=== PATIENT | female | born 1945 | race Caucasian/White ===

== ENCOUNTER 2020-04-04 00:19 | Outpatient (CLI) | payer MEDICARE, SELFPAY ==
[2020-04-04 18:56] LABS: SARS-CoV-2 RNA PCR Negative
== END 2020-04-04 00:20 | disposition home or self-care (01) ==
LOC: ANHCOVIDDT 00:19
PROVIDERS: PCP Internal Medicine; Visit Provider Internal Medicine Gastroenterology
DX: Z01.818 Encounter for other preprocedural examination (principal); Z11.59 Encounter for screening for other viral diseases; R93.3 Abnormal findings on diagnostic imaging of other parts of digestive tract
CPT/HCPCS: 87635; C9803; U0003

== ENCOUNTER 2020-04-06 00:38 | Day surgery (SDC) | payer MEDICARE, SELFPAY ==
[2020-03-30 14:23] VITALS: BMI 17.4
[2020-04-06 07:52] VITALS: BP 108/67; PULSE 100; RESP 18; TEMP 36.4; O2SAT 100
--- NOTE | 2020-04-06 08:04 | WPDANESEPPF ---
Anes - Initial Pre Proc Eval Procedure: Operation Date: 04/06/20 09:00 Proposed Procedures p Esophagogastroduodenoscopy - Ricardo Hicks DO Date/Time: 04/06/20 08:04 Surgeon: Ricardo Hicks DO Pre Op Diagnosis: esophagitis Patient Data Age: 75 Gender: F Height: 1.78 m Weight: 55 kg Allergies Allergy/AdvReac Type Severity Reaction Status Date / Time Penicillins Allergy Severe Hives Verified 04/06/20 07:56 Home Medications Medication Instructions Recorded Confirmed Type Cbd Oil 1 drp 03/30/20 History apple cider vinegar mg PO 03/30/20 History azelastine 137 mcg INTRANASAL BID 03/30/20 04/06/20 History calcium carbonate [Tums] 200 mg PO TID PRN 03/30/20 03/30/20 History fluticasone furoate-vilanterol 1 inh INHALATION DAILY 03/30/20 03/30/20 History [Breo Ellipta] fluticasone propionate 2 spray INTRANASAL BID 03/30/20 03/30/20 History oxycodone 5 mg PO DAILY PRN 03/30/20 04/06/20 History Patient hx anesthesia problems: none Family hx anesthesia problems: none PMFSH Past Medical History Medical History (Updated 04/06/20 @ 08:10 by Kye Ivan MD) AAA (abdominal aortic aneurysm) without rupture 03/2018 CT: 4.1 cm infrarenal aaa Chronic kidney disease (CKD) stage G3a/A2, moderately decreased glomerular filtration rate (GFR) between 45-59 mL/min/1.73 square meter and albuminuria creatinine ratio between 30-299 mg/g Chronic narcotic use Oxycodone PRN CKD (chronic kidney disease) COPD (chronic obstructive pulmonary disease) Follicular lymphoma History of [place] nodule [place] [id number], Partial right lobe removed r/t scar tissue 2008 Malignant neoplasm of lower lobe, right bronchus or lung Metastatic disease RAFA on CPAP 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 SOB (shortness of breath) Tobacco abuse Surgical History Surgical History (Updated 04/06/20 @ 08:07 by Kye Ivan MD) History of bilateral oophorectomy History of lung surgery History of tonsillectomy Hx of cholecystectomy Social History Social History (Updated 12/07/19 @ 14:47 by Meka Batista CMA) Smoking packs per day: 1 Smoking cigarettes per day: 20.0 Years smoked: 50 Smoking pack-years: 50.00 Smoking status: Current every day smoker Tobacco type: cigarettes Second hand tobacco smoke exposure: Yes Smoking end date: 09/12/19 Alcohol intake: never Gender identity (if verbalized by the patient): Female Anes - Eval Final PreProcedure Day of Procedure 04/06/20 08:04 Patient weight: thin Heart: regular rate and rhythm Lungs: clear to auscultation and normal air movement Airway: Mallampati scale class II Neurological: alert and oriented Last oral intake: >/= 8 hours ASA classification: III Emergent: no Anesthetic plan: proceed Anesthesia type and monitoring: general GIVS Informed Consent: The patient's anesthetic plan and its attendant risks and benefits were discussed with the patient/family/POA. Questions were solicited and answers provided to the satisfaction of the patient/family/POA.
[2020-04-06] MEDS: LACTATED RINGERS 1,000 ML 150 ML IV CONT (08:16)
--- NOTE | 2020-04-06 08:45 | PM.IMHP ---
H&P: HPI History of Present Illness Chief complaint: esophagitis Narrative: reason for visit EGD. This very pleasant lady Is being seen at the request of the primary physician. the patient was examined. Impression: A very pleasant lady with history of indigestion and heartburn. She has had abnormal PET scanning of the esophagus. She is here for EGD. History of adenomatous colon polyps. History diverticulosis coli. Per past medical history. Recommendation: EGD. History: This very pleasant lady has a history of lung cancer status post radiation therapy. She also has a history of non-Hodgkin's lymphoma and status post chemotherapy. PET scanning revealed a abnormality in the esophagus. She does have a history of frequent indigestion and heartburn. She has pill dysphagia only. Nausea, vomiting hematemesis and abdominal pain are denied. Hematochezia, melena acholic stools are denied. Physical examination: General: very pleasant patient in no acute distress. HEENT: Head was normocephalic sclerae is clear mouth without masses neck was supple. Heart: Rate rhythm regular without S3 or S4. Lungs: Decreased breath sounds bilaterally with occasional wheezes. Abdomen: Soft with no guarding or rigidity. Bowel sounds were active. Neurologic: Cranial nerves 2 through 12 intact. No focal defects. No clonus. Musculoskeletal system: Revealed no joint tenderness or swelling no muscle atrophy. Extremities: Reveal no significant edema. Skin: Warm and dry with normal turgor. Mental status: intact. Patient is alert and oriented. Review of Systems Review of Systems: All systems reviewed & are unremarkable except as noted in HPI and below [facility] Past Medical History Medical History (Updated 04/06/20 @ 08:45 by Ricardo Hicks DO) AAA (abdominal aortic aneurysm) without rupture 03/2018 CT: 4.1 cm infrarenal aaa Adenomatous colon polyp Chronic narcotic use Oxycodone PRN CKD (chronic kidney disease) COPD (chronic obstructive pulmonary disease) Diverticula, colon Follicular lymphoma History of thyroid nodule [place] [id number], Partial right lobe removed r/t scar tissue 2008 Metastatic disease RAFA on CPAP Osteoporosis 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 Tobacco abuse Surgical History Surgical History (Updated 04/06/20 @ 08:44 by Ricardo Hicks DO) H/O colonoscopy History of bilateral oophorectomy History of lung surgery History of tonsillectomy Hx of cholecystectomy Social History Social History (Updated 12/07/19 @ 14:47 by Meka Batista [facility]) Smoking packs per day: 1 Smoking cigarettes per day: 20.0 Years smoked: 50 Smoking pack-years: 50.00 Smoking status: Current every day smoker Tobacco type: cigarettes Second hand tobacco smoke exposure: Yes Smoking end date: 09/12/19 Alcohol intake: never Gender identity (if verbalized by the patient): Female Meds Home Medications and Allergies Home Medications Medication Instructions Recorded Confirmed Type Cbd Oil 1 drp 03/30/20 History apple cider vinegar mg PO 03/30/20 History azelastine 137 mcg INTRANASAL BID 03/30/20 04/06/20 History calcium carbonate [Tums] 200 mg PO TID PRN 03/30/20 03/30/20 History fluticasone furoate-vilanterol 1 inh INHALATION DAILY 03/30/20 03/30/20 History [Breo Ellipta] fluticasone propionate 2 spray INTRANASAL BID 03/30/20 03/30/20 History oxycodone 5 mg PO DAILY PRN 03/30/20 04/06/20 History Allergies Allergy/AdvReac Type Severity Reaction Status Date / Time Penicillins Allergy Severe Hives Verified 04/06/20 07:56 Vital Signs Vital Signs - 24 hr 04/06/20 07:52 Temperature 36.4 C L Pulse Rate 100 Respiratory Rate 18 Blood Pressure 108/67 Pulse Oximetry 100
[2020-04-06 09:04] VITALS: BP 89/44; PULSE 97; RESP 22; O2SAT 97
[2020-04-06 09:14] VITALS: BP 111/55; PULSE 98; RESP 16; O2SAT 98
[2020-04-06 09:24] VITALS: BP 95/63; PULSE 77; RESP 17; O2SAT 96
== END 2020-04-06 09:49 | disposition home or self-care (01) ==
PROVIDERS: PCP Internal Medicine; Visit Provider Internal Medicine Gastroenterology
PROC: 0DJ08ZZ Inspection of Upper Intestinal Tract, Via Natural or Artificial Opening Endoscopic (ICD-10-PCS; CPT 43235; principal; 2020-04-06 09:00)
DX: K20.8 Other esophagitis (principal); K21.9 Gastro-esophageal reflux disease without esophagitis; G47.33 Obstructive sleep apnea (adult) (pediatric); N18.9 Chronic kidney disease, unspecified; J44.9 Chronic obstructive pulmonary disease, unspecified; I71.4 Abdominal aortic aneurysm, without rupture; M81.8 Other osteoporosis without current pathological fracture; F17.210 Nicotine dependence, cigarettes, uncomplicated; Z85.72 Personal history of non-Hodgkin lymphomas; Z85.118 Personal history of other malignant neoplasm of bronchus and lung; Z92.21 Personal history of antineoplastic chemotherapy; Z92.3 Personal history of irradiation; Z79.899 Other long term (current) drug therapy; Z79.891 Long term (current) use of opiate analgesic
CPT/HCPCS: 43239; 87081; 88305; 88312; J2001; J2704; J7120

== ENCOUNTER 2020-07-21 11:48 | Outpatient (CLI) | payer MEDICARE, SELFPAY ==
[2020-07-21 12:23] LABS: Cholesterol 199 mg/dL (0-200); HDL Direct 59 mg/dL; Triglycerides 222 mg/dL (<150)
[2020-07-21 12:33] LABS: LDL Cholesterol Direct 112 mg/dL
[2020-07-21 13:22] LABS: Vitamin D 25 Hydroxy 38.4 ng/mL
== END 2020-07-21 11:49 | disposition home or self-care (01) ==
PROVIDERS: PCP Internal Medicine; Visit Provider Internal Medicine
DX: E55.9 Vitamin D deficiency, unspecified (principal); E78.5 Hyperlipidemia, unspecified
CPT/HCPCS: 36415; 80061; 82306

== ENCOUNTER 2020-08-01 10:33 | Outpatient (CLI) | payer MEDICARE, SELFPAY ==
--- NOTE | ~2020-08-01 | MM_ITS ---
EXAMINATION: MM screening rajeev BI w jesenia HISTORY: Screening mammogram TECHNIQUE: Craniocaudal and mediolateral oblique 3-D tomosynthesis images were obtained and synthetic 2-D images were generated. CAD analysis was submitted and interpreted. COMPARISON: 07/20/2012 bilateral digital screening mammogram BREAST PARENCHYMAL COMPOSITION: There are scattered areas of fibroglandular density. FINDINGS: 7 mm circumscribed opacity in the upper outer quadrant of the right breast is stable since 07/20/2012. The stability in the benign mammographic features are consistent with benign process. Occa sional bilateral benign calcifications. There is no evidence of suspicious mass, calcification, or ar chitectural distortion to suggest malignancy in either breast. There has been no suspicious interval change. IMPRESSION: 1. No mammographic evidence of malignancy. 2. Recommend routine screening mammography in one year. BI-RADS Category 2: Benign finding(s). Reviewed, dictated and finalized at location A.
== END 2020-08-01 10:34 | disposition home or self-care (01) ==
PROVIDERS: PCP Internal Medicine; Visit Provider Internal Medicine
DX: Z12.31 Encounter for screening mammogram for malignant neoplasm of breast (principal)
CPT/HCPCS: 77063; 77067

== ENCOUNTER → 2020-12-11 02:18 | Outpatient (CLI) | payer MEDICARE, SELFPAY ==
[2020-12-11 18:21] LABS: SARS-CoV-2 RNA PCR Negative
== END ==
PROVIDERS: PCP Internal Medicine; Visit Provider Internal Medicine Gastroenterology
DX: Z01.812 Encounter for preprocedural laboratory examination (principal); Z20.822 Contact with and (suspected) exposure to COVID-19
CPT/HCPCS: C9803; U0003; U0005

== ENCOUNTER 2020-12-14 00:16 | Day surgery (SDC) | payer MEDICARE, SELFPAY ==
[2020-11-29 11:46] VITALS: BMI 21.4
[2020-12-14 07:55] VITALS: BP 93/38; PULSE 101; RESP 20; TEMP 36.3; O2SAT 100
[2020-12-14] MEDS: LACTATED RINGERS 1,000 ML 150 ML IV CONT (08:05)
--- NOTE | 2020-12-14 08:51 | WPDANESEPPF ---
Anes - Initial Pre Proc Eval Procedure: Operation Date: 12/14/20 09:00 Proposed Procedures p Screening Colonoscopy - Ricardo Hicks DO Date/Time: 12/14/20 08:51 Surgeon: Ricardo Hicks DO Pre Op Diagnosis: neoplasm screening Patient Data Age: 75 Gender: F Height: 5 ft 10 in Weight: 72.9 kg Last Vital Signs Temp 97.3 F L 12/14/20 07:55 Pulse 101 H 12/14/20 07:55 Resp 20 12/14/20 07:55 BP 93/38 L 12/14/20 07:55 Pulse Ox 100 12/14/20 07:55 Allergies Allergy/AdvReac Type Severity Reaction Status Date / Time Penicillins Allergy Severe Hives Verified 12/14/20 07:53 Home Medications Medication Instructions Recorded Confirmed Type apple cider vinegar 300 mg PO DAILY 03/30/20 12/12/20 History azelastine 137 mcg INTRANASAL BID 03/30/20 12/12/20 History cetirizine 10 mg capsule 10 mg PO DAILY 30 Days #30 cap 06/06/20 12/12/20 Rx albuterol sulfate 90 mcg/actuation 1 puff INHALATION Q4H PRN 07/13/20 12/12/20 History aerosol inhaler ferrous sulfate 325 mg (65 mg 325 mg PO DAILY 07/13/20 12/12/20 History iron) tablet fluticasone propionate 2 spray INTRANASAL BID 11/29/20 12/12/20 History bupropion HCl 150 mg tablet,12 hr 150 mg PO DAILY tablet 12/12/20 12/14/20 History sustained-release nitrofurantoin macrocrystal 100 mg 100 mg PO Q12H PRN #20 cap 12/12/20 12/14/20 Rx capsule Patient hx anesthesia problems: none Family hx anesthesia problems: none PMFSH Past Medical History Medical History AAA (abdominal aortic aneurysm) without rupture 03/2018 CT: 4.1 cm infrarenal aaa Adenomatous colon polyp Chronic narcotic use Oxycodone PRN CKD (chronic kidney disease) COPD (chronic obstructive pulmonary disease) Diverticula, colon Follicular lymphoma GERD (gastroesophageal reflux disease) History of thyroid nodule History [place] [id number], Partial right lobe removed r/t scar tissue 2009 Metastatic disease RAFA on CPAP Osteoporosis 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 Tobacco abuse Surgical History Surgical History H/O colonoscopy History of bilateral oophorectomy History of lung surgery History of tonsillectomy Hx of cholecystectomy Family History Family History Sibling Patient's sister is in good health Family history of malignant neoplasm of ovary Diabetes mellitus Family history of lung cancer Family history of malignant neoplasm of bone Family history of malignant neoplasm of kidney Father Family history of malignant neoplasm of brain Grandparent Family history of malignant neoplasm of ovary Mother Diabetes mellitus Family history of congestive heart failure Social History Social History Smoking packs per day: 1 Smoking cigarettes per day: 20.0 Years smoked: 50 Smoking pack-years: 50.00 Smoking status: Former smoker Tobacco type: cigarettes and e-cigarettes/vaping Second hand tobacco smoke exposure: Yes Smoking end date: 09/12/19 Additional smoking assessment comments: USES VAPE NOW AFTER QUITTING CIG. Alcohol intake: never Substance use: never Substance use type: does not use Living arrangements: alone Gender identity (if verbalized by the patient): Female Spiritual care concerns: No Anes - Eval Final PreProcedure Day of Procedure 12/14/20 08:51 Patient weight: normal Heart: regular rate and rhythm Lungs: clear to auscultation Airway: Mallampati scale class II Neurological: alert and oriented Last oral intake: >/= 8 hours ASA classification: III Emergent: no Anesthetic plan: proceed Anesthesia type and monitoring: general GIVS and standard monitoring Informed Consent: The patient's anesthetic plan and its attendant risks and benefits were discussed with the patient/family/P
--- NOTE | 2020-12-14 09:11 | WPDGICN ---
GI Consult Note Consult date/time: 12/14/20 09:11 HPI: Reason for visit is colonoscopy. This very pleasant lady's here at the request primary physician. Impression: Screening and surveillance colonoscopy. The patient has history of multiple adenomatous colon polyps. Chronic constipation. This may be secondary to underlying medications. GERD controlled on medication. AAA. CKD. RAFA. Non-Hodgkin's lymphoma. Lung cancer. COPD. Osteoporosis. Tobacco abuse in remission. Recommendation: Colonoscopy. History: This very pleasant lady's here for colonoscopy. She does take senna order to have bowel movements at times. She has a history of multiple adenomatous colon polyps. She is here for screening and surveillance. Physical examination: General: very pleasant patient in no acute distress. HEENT: Head was normocephalic sclerae is clear mouth without masses neck was supple. Heart: Rate rhythm regular without S3 or S4. Lungs: Decreased breath sounds with expiratory wheezes. Abdomen: Soft with no guarding or rigidity. Bowel sounds were active. Neurologic: Cranial nerves 2 through 12 intact. No focal defects. No clonus. Musculoskeletal system: Revealed no joint tenderness or swelling no muscle atrophy. Extremities: Reveal no significant edema. Skin: Warm and dry with normal turgor. Mental status: intact. Patient is alert and oriented. Review of Systems Review of Systems: All systems reviewed & are unremarkable except as noted in HPI and below [facility] Past Medical History Medical History (Updated 12/14/20 @ 09:11 by Ricardo Hicks DO) AAA (abdominal aortic aneurysm) without rupture 03/2018 CT: 4.1 cm infrarenal aaa Adenomatous colon polyp Chronic narcotic use Oxycodone PRN CKD (chronic kidney disease) COPD (chronic obstructive pulmonary disease) Diverticula, colon Follicular lymphoma GERD (gastroesophageal reflux disease) History of thyroid nodule History of [place] abuse [place] [id number], Partial right lobe removed r/t scar tissue 2008 Metastatic disease RAFA on CPAP Osteoporosis Tobacco abuse Surgical History Surgical History H/O colonoscopy History of bilateral oophorectomy History of lung surgery History of tonsillectomy Hx of cholecystectomy Family History Family History Sibling Patient's sister is in good health Family history of malignant neoplasm of ovary Diabetes mellitus Family history of lung cancer Family history of malignant neoplasm of bone Family history of malignant neoplasm of kidney Father Family history of malignant neoplasm of brain Grandparent Family history of malignant neoplasm of ovary Mother Diabetes mellitus Family history of congestive heart failure Social History Social History Smoking packs per day: 1 Smoking cigarettes per day: 20.0 Years smoked: 50 Smoking pack-years: 50.00 Smoking status: Former smoker Tobacco type: cigarettes and e-cigarettes/vaping Second hand tobacco smoke exposure: Yes Smoking end date: 09/12/19 Additional smoking assessment comments: USES VAPE NOW AFTER QUITTING CIG. Alcohol intake: never Substance use: never Substance use type: does not use Living arrangements: alone Gender identity (if verbalized by the patient): Female Spiritual care concerns: No Meds Home Medications and Allergies Home Medications Medication Instructions Recorded Confirmed Type apple cider vinegar 300 mg PO DAILY 03/30/20 12/12/20 History azelastine 137 mcg INTRANASAL BID 03/30/20 12/12/20 History cetirizine 10 mg capsule 10 mg PO DAILY 30 Days #30 cap 06/06/20 12/12/20 Rx albuterol sulfate 90 mcg/actuation 1 puff INHALATION Q4H PRN 07/13/20 12/12/20 History aerosol inhaler ferrous sulfate 325 mg (65 mg 32
[2020-12-14 09:57] VITALS: BP 79/51; PULSE 80; RESP 28; O2SAT 93
[2020-12-14 10:07] VITALS: BP 99/61; PULSE 77; RESP 18; O2SAT 94
[2020-12-14 10:17] VITALS: BP 105/67; PULSE 79; RESP 18; O2SAT 98
== END 2020-12-14 10:21 | disposition home or self-care (01) ==
PROVIDERS: PCP Internal Medicine; Visit Provider Internal Medicine Gastroenterology
PROC: 0DJD8ZZ Inspection of Lower Intestinal Tract, Via Natural or Artificial Opening Endoscopic (ICD-10-PCS; CPT 45378; principal; 2020-12-14 09:00)
DX: Z12.11 Encounter for screening for malignant neoplasm of colon (principal); D12.3 Benign neoplasm of transverse colon; D12.0 Benign neoplasm of cecum; D12.2 Benign neoplasm of ascending colon; K57.30 Diverticulosis of large intestine without perforation or abscess without bleeding; K64.8 Other hemorrhoids; I71.4 Abdominal aortic aneurysm, without rupture; J44.9 Chronic obstructive pulmonary disease, unspecified; N18.9 Chronic kidney disease, unspecified; K21.9 Gastro-esophageal reflux disease without esophagitis; G47.33 Obstructive sleep apnea (adult) (pediatric); M81.0 Age-related osteoporosis without current pathological fracture; Z85.118 Personal history of other malignant neoplasm of bronchus and lung; Z90.2 Acquired absence of lung [part of]; Z85.72 Personal history of non-Hodgkin lymphomas; Z87.898 Personal history of other specified conditions; F17.290 Nicotine dependence, other tobacco product, uncomplicated
CPT/HCPCS: 45385; 45380; 88305; J2001; J2704; J7120

== ENCOUNTER → 2020-12-29 09:41 | Outpatient (CLI) | payer MEDICARE, SELFPAY ==
--- NOTE | ~2020-12-29 | MR_ITS ---
EXAMINATION: MR shoulder LT wo con DATE: 12/29/2020 10:33 INDICATION: Left shoulder pain TECHNIQUE: Magnetic resonance imaging (MRI) of the left shoulder was performed without intravenous co ntrast. Sequences included axial PD-weighted FS FSE, coronal oblique PD-weighted FS FSE, coronal obli que T2-weighted FS FSE, sagittal PD-weighted FS FSE, and sagittal T1-weighted SE. COMPARISON: None. FINDINGS: Coracoacromial arch: The acromion undersurface is curved in morphology (type II). Very small anterior subacromial spur at the acromial insertion of the normal coracoacromial ligament. Minimal acromioclavicular osteoarthriti s. Rotator cuff: Mild supraspinatus tendinopathy without discrete tear. The infraspinatus, teres minor and subscapular is tendons are normal. Normal rotator cuff muscle bulk and signal. Biceps tendon, glenoid labrum and glenohumeral cartilage: Long head of the biceps tendon is normal. D minute the 12:30 position of the superior glenoid labrum at the site of a small labral tear with fluid signal extending minimally peripherally into the substa nce of the labrum from a small cleft at the chondral labral junction bladder which could be due to ei ther tear or a pre-existing normal small sublabral sulcus. There is a tiny marginal osteophyte along the inferior glenoid which appears to replace a significant portion of the diminutive inferior glenoi d labrum. Mild partial thickness cartilage loss with smooth chondral surface along the superior gleno id and at the apex and inferomedial aspect of the humeral head. Fluid: Physiologic amount of fluid in the glenohumeral joint and biceps tendon sheath. No loose osteochondra l bodies. Bones: Prominent low signal intensity bone island at the inferomedial aspect of the humeral head. No fractur e or pathologic marrow replacing process. IMPRESSION: 1. Mild glenohumeral osteoarthritis with small tear at the superior glenoid labrum with chronic degen eration of the inferior glenoid labrum. 2. Mild supraspinatus tendinopathy without discrete tear. Reviewed, dictated and finalized at location B. IMPRESSION: 1. Mild glenohumeral osteoarthritis with small tear at the superior glenoid lab rum with chronic degeneration of the inferior glenoid labrum. 2. Mild supraspinatus tendinopathy without discrete tear.
== END ==
PROVIDERS: PCP Internal Medicine; Visit Provider Nurse Practitioner Family
DX: M19.012 Primary osteoarthritis, left shoulder (principal)
CPT/HCPCS: 73221

== ENCOUNTER 2021-03-13 10:05 | Outpatient (CLI) | payer MEDICARE, SELFPAY ==
[2021-03-13 11:13] LABS: Basophils Absolute Auto 0.1 K/mm3 (0.0-0.1); Basophils Percent Auto 2.2 % (0.2-1.2); Eosinophils Absolute Auto 0.2 K/mm3 (0-0.3); Eosinophils Percent Auto 6.3 % (0-4.4); Hematocrit 34.1 % (37.0-47.0); Hemoglobin 10.3 g/dL (12.0-15.0); Immature Granulocyte Absolute 0.04 K/mm3 (0.00-0.031); Immature Granulocyte Percent A 1.5 % (0-0.5); Immature Platelet Fraction Pct 16.1 % (0.9-11.2); Lymphocytes Absolute Auto 0.65 K/mm3 (0.9-3.2); Lymphocytes Percent Auto 24.2 % (18.3-44.2); Mean Corpuscular HGB Conc 30.2 g/dl (32-36); Mean Corpuscular Hemoglobin 27.9 pg (26-34); Mean Corpuscular Volume 92.4 fl (80-100); Monocytes Absolute Auto 0.5 K/mm3 (0.1-0.6); Monocytes Percent Auto 17.8 % (2.6-8.5); Neutrophils Absolute Auto 1.3 K/mm3 (1.3-6.7); Nucleated Red Blood Cells Perc 1.1 % (0.0-0.2); Platelet Count Result 85 k/mm3 (150-375); Red Blood Count 3.69 M/mm3 (4.2-5.4); Red Cell Distribution Width 20.5 % (11.5-14.5); White Blood Count 2.7 K/mm3 (4.5-10.0)
== END 2021-03-13 10:06 | disposition home or self-care (01) ==
PROVIDERS: PCP Internal Medicine; Visit Provider Internal Medicine
DX: D64.9 Anemia, unspecified (principal); R53.83 Other fatigue
CPT/HCPCS: 36415; 84443; 85025; 85055

== ENCOUNTER 2021-03-20 10:40 | Outpatient (CLI) | payer MEDICARE, SELFPAY | END 2021-03-20 10:41 | disposition home or self-care (01) | PROVIDERS: PCP Internal Medicine; Visit Provider Nurse Practitioner | DX: R30.0 Dysuria (principal) | CPT/HCPCS: 87086; 87088 ==

== ENCOUNTER 2021-06-21 13:09 | Outpatient (CLI) | payer MEDICARE, SELFPAY ==
[2021-06-21 14:16] LABS: Add Urine Microscopic? YES; Appearance Urine Clear (Clear); Bacteria Urine Trace /hpf; Bilirubin Urine Negative (Negative); Blood Urine Negative (Negative); Color Urine Yellow (Yellow); Glucose Urine UA Negative (Negative); Ketones Urine Negative (Negative); Leukocyte Esterase Ur Negative LEU/UL (Negative); Mucus Urine Rare /lpf; Nitrate Urine Negative (Negative); Protein Urine Negative (Negative); Specific Grav Ur 1.021 (1.001-1.035); Squamous Epithelial Cell Urine Occasional /hpf (Few)
== END 2021-06-21 13:10 | disposition home or self-care (01) ==
PROVIDERS: PCP Internal Medicine; Visit Provider Nurse Practitioner
DX: R30.0 Dysuria (principal)
CPT/HCPCS: 81001